=== PATIENT | female | born 1965 | race African-American/Black ===

== ENCOUNTER 2018-04-10 18:14 | Emergency (ER) | payer OTHER ==
[~2018-04-10] VITALS: Ht 157.5 cm; Wt 68.0 kg
[~2018-04-10 18:14] MED LIST: LEVSIN/SL0.125 MG SL
== END 2018-04-10 20:10 | disposition home or self-care (01) ==
LOC: ER 18:14
DX: G44.209 Tension-type headache, unspecified, not intractable (principal)